=== PATIENT | female | born 1985 | race Caucasian/White ===

== ENCOUNTER → 2017-03-18 | Outpatient (CLI) | payer OTHER ==
[2017-03-19 11:08] LABS: HEPATITIS C AB SCREEN <0.1 s/co ratio (0.0-0.9)
== END | disposition home or self-care (01) ==
LOC: LABPV 09:52
PROVIDERS: ATTEND Obstetrics & Gynecology Gynecology
DX: Z11.3 Encounter for screening for infections with a predominantly sexual mode of transmission (principal); Z01.419 Encounter for gynecological examination (general) (routine) without abnormal findings
CPT/HCPCS: 86592; 86706; 86803; 87389; 87624; 88175